=== PATIENT | female | born 1970 | race Caucasian/White ===

== ENCOUNTER → 2021-01-13 14:05 | Outpatient (BNVA) | payer BC, SELFPAY | PROVIDERS: PCP Nurse Practitioner Family; Visit Provider Nurse Practitioner Family | DX: Z12.11 Encounter for screening for malignant neoplasm of colon (principal); Z00.00 Encounter for general adult medical examination without abnormal findings; R53.83 Other fatigue; Z13.6 Encounter for screening for cardiovascular disorders; Z68.30 Body mass index [BMI] 30.0-30.9, adult | CPT/HCPCS: 80053; 80061; 84443; 85025 ==

== ENCOUNTER 2021-03-28 13:39 | Outpatient (CLI) | payer BC, SELFPAY ==
--- NOTE | 2021-03-28 14:30 | MM_ITS ---
WS: [id number] BILATERAL DIGITAL SCREENING MAMMOGRAPHY WITH CAD CLINICAL INFORMATION: Z12.31 - Encounter for screening mammogram for malignant ... HISTORY: Screening mammogram. No current complaints. COMPARISON: TECHNIQUE: Bilateral CC and MLO views. FINDINGS: Scattered fibroglandular densities bilaterally. No suspicious focal mass, asymmetry, calcifications, or architectural distortion. No evidence of malignancy. MM/[id number] IMPRESSION: BI-RADS: 1-Negative FOLLOW UP: 1 Year Follow-up Recommend return to annual screening mammography.
== END 2021-03-28 13:40 | disposition home or self-care (01) ==
LOC: RADSHAW 13:45
PROVIDERS: PCP Nurse Practitioner Family; Visit Provider Nurse Practitioner Family
DX: Z12.31 Encounter for screening mammogram for malignant neoplasm of breast (principal); Z11.52 Encounter for screening for COVID-19
CPT/HCPCS: 77067; 87635

== ENCOUNTER 2021-04-02 07:07 | Day surgery (SDC) | payer BC, SELFPAY ==
[2021-03-28 10:25] VITALS: BMI 34.0
--- NOTE | 2021-04-02 07:20 | W.PM.OPSFHP ---
Same Day Surgery H&P Indication for Procedure/HPI DATE OF PROCEDURE: April 02, 2021 CHIEF COMPLAINT/INDICATIONFOR SURGICAL PROCEDURE: screening PREOP DIAGNOSIS: diagnostic PLANNED PROCEDURE: Operation Date: 04/02/21 08:00 Proposed Procedures p Colonoscopy 71132 Z12.11(Not Applicable) - David Dupont MD Medications/Allergies* Home Medications Medication Instructions Recorded Confirmed Type No Known Home Medications 01/13/21 03/28/21 History Allergies/Adverse Reactions Allergy/AdvReac Type Severity Reaction Status Date / Time codeine Allergy ALGY-Hives Verified 03/28/21 10:23 Pertinent History/Comorbid Conditions* Surgical History (Updated 01/13/21 @ 14:00 by GINNY Tidwell) History of tonsillectomy and adenoidectomy Hx of rotator cuff surgery right Hx of tubal ligation Family History (Updated 01/13/21 @ 13:46 by Elvira Bustos LPN) Diabetes Mother Cancer Father Social History Smoking and tobacco status: former smoker Second hand smoke exposure: No Smoking risk assessment/counseling performed?: No Alcohol intake: never Desire information about alcohol rehabilitation?: No Counseling given: No Desire information about substance/drug rehabilitation?: No Counseling given: No Adopted: No Caregiver/support person: No Lives independently: Yes Household members: spouse Housing: House Marital status: Number of children: 2 Highest education level completed: Some College, No Degree service: No Current occupational status: employed History of recent travel: No Pertinent Exam Findings alert, oriented x 3 and regular rate & rhythm Recommendations Surgery/Procedure today Coding Level of Care Code Acute Engineering Design Manager for Danica Greer
[2021-04-02 08:04] VITALS: BP 127/73; PULSE 75; RESP 16; TEMP 36.3; O2SAT 99
[2021-04-02] MEDS: sodium chloride 0.9% 1,000 ML 30 ML IV (08:06)
--- NOTE | 2021-04-02 09:33 | ANES.PREANE2 ---
Pre-Anesthetic Assessment Height/Weight: Height 1.55 m Weight 81.647 kg Temp Pulse Resp BP Pulse Ox 97.4 F L 75 16 127/73 99 04/02/21 08:04 04/02/21 08:04 04/02/21 08:04 04/02/21 08:04 04/02/21 08:04 Preop Diagnosis: diagnostic Operation Date: 04/02/21 08:00 Proposed Procedures p Colonoscopy 68614 Z12.11(Not Applicable) - David Dupotn MD Familial anesthetic complications: Woke up during her elbow tendon surgery for a couple of seconds Was Beta Romeo taken within 24 hours: N/A Was Clonidine taken within 24 hours: N/A Last intake: Intake Last Liquid Date 03/31/21 Last Liquid Time 21:00 Last Solid Date 04/01/21 Last Solid Time 19:00 Social No alcohol and No tobacco Exam alert, oriented x 3, clear to auscultation bilaterally and regular rate & rhythm Airway Mallampati: Class I Dentition: other ( Fixed bridges ) Pulmonary None reported CV/HEM None reported None reported Hepatic None reported GI None reported Metabolic None reported Musc/skel None reported Neuropsych None reported Anesthetic Plan ASA status: 1 Anesthesia: MAC Medications/Allergies Home Medications Medication Instructions Recorded Confirmed Last Taken Type No Known Home Medications 01/13/21 04/02/21 Unknown History Allergies Allergy/AdvReac Type Severity Reaction Status Date / Time codeine Allergy ALGY-Hives Verified 04/02/21 08:03 Current Medications Generic Name Dose Route Start Last Admin Trade Name Freq PRN Reason Stop Dose Admin Sodium Chloride 1,000 mls @ 30 mls/hr 04/02/21 07:30 04/02/21 08:06 Sodium Chloride 0.9% IV 04/03/21 07:29 30 mls/hr .Q24H MAGUE Administration PFSH Anesthesia Surgical History History of tonsillectomy and adenoidectomy Hx of rotator cuff surgery right Hx of tubal ligation Family History Mother Diabetes Father Cancer Social History Smoking and tobacco status: former smoker Second hand smoke exposure: No Smoking risk assessment/counseling performed?: No Alcohol intake: never Desire information about alcohol rehabilitation?: No Counseling given: No Desire information about substance/drug rehabilitation?: No Counseling given: No Adopted: No Caregiver/support person: No Lives independently: Yes Household members: spouse Housing: House Marital status: Number of children: 2 Highest education level completed: Some College, No Degree service: No Current occupational status: employed History of recent travel: No Data Anesthesia Cardiac Studies: No Data to Display
[2021-04-02 11:14] VITALS: BP 95/61; PULSE 77; RESP 18; TEMP 36.4; O2SAT 96
[2021-04-02 11:35] VITALS: BP 102/71; PULSE 76; RESP 16; O2SAT 97
--- NOTE | 2021-04-02 12:56 | ANE.PACU2 ---
Inpatient post-anesthesia follow up: Airway intact: Yes Vital signs: Temperature 97.6 F Pulse Rate 76 Respiratory Rate 16 Blood Pressure 102/71 Pulse Oximetry 97 Oxygen Delivery Me thod Room Air Oxygen Flow Rate Fraction of Inspir ed Oxygen Hydration adequate: Yes Nausea and vomiting: No Pain level: 1
== END 2021-04-02 11:40 | disposition home or self-care (01) ==
PROVIDERS: PCP Nurse Practitioner Family; Visit Provider Surgery
PROC: 0DJD8ZZ Inspection of Lower Intestinal Tract, Via Natural or Artificial Opening Endoscopic (ICD-10-PCS; CPT 45378; principal; 2021-04-02 08:00)
DX: Z12.11 Encounter for screening for malignant neoplasm of colon (principal); K57.30 Diverticulosis of large intestine without perforation or abscess without bleeding; K64.8 Other hemorrhoids; D12.2 Benign neoplasm of ascending colon; Z87.891 Personal history of nicotine dependence
CPT/HCPCS: 45380; 88305; J2704; J7030

== ENCOUNTER → 2022-02-04 14:03 | Outpatient (BNVA) | payer BC, SELFPAY | PROVIDERS: PCP Nurse Practitioner Family; Visit Provider Nurse Practitioner Family | DX: R53.83 Other fatigue (principal); R63.5 Abnormal weight gain; F32.A Depression, unspecified | CPT/HCPCS: 80053; 80061; 84443; 85025 ==

== ENCOUNTER 2022-04-06 10:30 | Outpatient (CLI) | payer BC, SELFPAY ==
--- NOTE | 2022-04-06 10:41 | MM_ITS ---
WS: [id number] SCREENING DIGITAL TOMOSYNTHESIS MAMMOGRAM WITH CAD HISTORY: SCREENING COMPARISON: 03/20/2021 and 10/13/2016 Bilateral CC and MLO with tomosynthesis views submitted. Synthetic mammography reviewed. Computer aid ed detection analyzed. Breast composition: There are scattered areas of fibroglandular density. No suspicious masses, microc alcifications or architectural distortion. MM/[id number] IMPRESSION: BI-RADS: 1-Negative FOLLOW UP: 1 Year Follow-up
== END 2022-04-06 10:31 | disposition home or self-care (01) ==
LOC: RAD 10:33
PROVIDERS: PCP Nurse Practitioner Family; Visit Provider Nurse Practitioner Family
DX: Z12.31 Encounter for screening mammogram for malignant neoplasm of breast (principal)
CPT/HCPCS: 77063; 77067

== ENCOUNTER → 2023-03-17 10:55 | Outpatient (BNVA) | payer BC, SELFPAY | PROVIDERS: PCP Nurse Practitioner Family; Visit Provider Nurse Practitioner Family | DX: R79.89 Other specified abnormal findings of blood chemistry (principal); E78.5 Hyperlipidemia, unspecified; Z00.00 Encounter for general adult medical examination without abnormal findings; E78.2 Mixed hyperlipidemia | CPT/HCPCS: 80053; 80061; 84443; 85025 ==

== ENCOUNTER 2023-04-20 09:54 | Outpatient (CLI) | payer BC, SELFPAY ==
--- NOTE | 2023-04-20 10:30 | MM_ITS ---
WS: [id number] BILATERAL 3D TOMOSYNTHESIS DIGITAL SCREENING MAMMOGRAPHY WITH CAD CLINICAL INFORMATION: Z12.39 - Encounter for other screening for malignant neop... HISTORY: Screening mammogram. No current complaints. COMPARISON: 2022 TECHNIQUE: Bilateral CC and MLO views. FINDINGS: Scattered fibroglandular densities bilaterally. No suspicious focal mass, asymmetry, calcifications, or architectural distortion. No evidence of malignancy. IMPRESSION: MM/[place] [id number] BI-RADS: 1-Negative FOLLOW UP: 1 Year Follow-up Recommend return to annual screening mammography.
== END 2023-04-20 09:55 | disposition home or self-care (01) ==
LOC: MOBLMAM 10:13
PROVIDERS: PCP Nurse Practitioner Family; Visit Provider Nurse Practitioner Family
DX: Z12.31 Encounter for screening mammogram for malignant neoplasm of breast (principal); R92.323 Mammographic fibroglandular density, bilateral breasts
CPT/HCPCS: 77063; 77067

== ENCOUNTER → 2024-05-10 08:40 | Outpatient (BNVA) | payer OTHER, SELFPAY | PROVIDERS: PCP Nurse Practitioner Family; Visit Provider Clinical Nurse Specialist Adult Health | DX: Z01.419 Encounter for gynecological examination (general) (routine) without abnormal findings (principal) | CPT/HCPCS: 88175 ==

== ENCOUNTER 2024-05-17 14:18 | Outpatient (CLI) | payer OTHER, SELFPAY ==
--- NOTE | 2024-05-17 14:20 | MM_ITS ---
WS: [id number] BILATERAL 3D TOMOSYNTHESIS DIGITAL SCREENING MAMMOGRAPHY WITH CAD CLINICAL INFORMATION: Z12.39 - Encounter for other screening for malignant neop... HISTORY: Screening mammogram. No current complaints. COMPARISON: 2023 TECHNIQUE: Bilateral CC and MLO views. FINDINGS: Scattered fibroglandular densities bilaterally. No suspicious focal mass, asymmetry, calcifications, or architectural distortion. No evidence of malignancy. MM/MM scr BI tomosynthesis [id number] IMPRESSION: DENSITY: There are scattered areas of fibroglandular density. BI-RADS: 1 - Negative. FOLLOW UP: 1 Year Follow-up Recommend return to annual screening mammography.
== END 2024-05-17 14:19 | disposition home or self-care (01) ==
LOC: MOBLMAM 14:20
PROVIDERS: PCP Nurse Practitioner Family; Visit Provider Nurse Practitioner Family
DX: Z12.31 Encounter for screening mammogram for malignant neoplasm of breast (principal); R92.323 Mammographic fibroglandular density, bilateral breasts
CPT/HCPCS: 77063; 77067